=== PATIENT | female | born 1995 | race Caucasian/White ===

== ENCOUNTER → 2018-09-15 | Outpatient (REF) | payer OTHER | LOC: M SFHCLERA 13:53 | PROVIDERS: ATTEND Nurse Practitioner Family | DX: R10.9 Unspecified abdominal pain (principal) ==

== ENCOUNTER → 2020-01-04 | Outpatient (CLI) | payer OTHER ==
--- NOTE | 2020-01-04 10:28 | REPMRS ---
Patient History The patient states she had a clinical breast exam in November 2019. Taking hormonal contraceptives for 4 years. Indicated problem(s): bilateral pain. Pt stated bilateral breast pain for 5 weeks, pain is not constant. Pt stated pain more laterally in both breasts but does tend to have pain in different parts of her breasts at times. Diagnostic Bilateral Mammo: January 04, 2020 - Exam #: [id number] Bilateral CC and MLO view(s) were taken. Technologist: Ana Jamil, RT No prior studies available for comparison. FINDINGS: The breast tissue is almost entirely fat. There is no evidence of dominant mass, architectural distortion, or grouped microcalcification typical of malignancy. 3-D tomosynthesis shows no additional findings. Assessment: BI-RADS/ACR category 1 mammogram. Negative Mammogram. Recommendation Routine screening mammogram of both breasts in 1 year (for women over age 40). This patient's Lifetime Breast Cancer RIsk is estimated at 10.2 %. This mammogram was interpreted with the aid of an FDA-approved computer-aided dectection system. Electronically Signed By: Gerardo Dyson MD 01/04/20 [id number]
== END ==
LOC: M WHC 09:35
PROVIDERS: ATTEND Family Medicine
DX: N64.4 Mastodynia (principal)
CPT/HCPCS: 77066; G0279

== ENCOUNTER 2021-01-25 22:34 | Outpatient (CLI) | payer OTHER ==
[~2021-01-25] VITALS: Ht 149.9 cm; Wt 93.2 kg
--- NOTE | 2021-01-25 23:35 | IPNPDOC ---
Text Note Date of Service The patient was seen on 01/25/21. NOTE S: 25yo Marcel [id number] @27+5 presenting to triage with c/o decreased movement. Denies bleeding, LOF, or cramping. Pt states normal fasting and post prandials with breakfast and lunch, states abnormal levels noted with some dinners. O: VSS RNST, fhr 150s, mod variability, +accel, -decel, no contractions noted TAUS for SIUP in breech presentation with frequent movement visualized, anterior placenta noted. YESI 14.3 A: Suspected condition not found gestational diabetes maternal obesity [id number] P:discharge to home with ptl precautions reviewed movement discussed management of glucose levels and food log to bring to all appointments MILAGROS GONZALEZ CNM January 25, 2021 23:35
== END 2021-01-25 23:40 | disposition home or self-care (01) ==
LOC: M LDO 22:34
PROVIDERS: ATTEND Registered Nurse
DX: O36.8120 Decreased fetal movements, second trimester, not applicable or unspecified (principal); Z3A.27 27 weeks gestation of pregnancy; O32.1XX0 Maternal care for breech presentation, not applicable or unspecified; O99.212 Obesity complicating pregnancy, second trimester; E66.9 Obesity, unspecified; O24.410 Gestational diabetes mellitus in pregnancy, diet controlled
CPT/HCPCS: G0378; G0463

== ENCOUNTER 2021-01-31 20:46 | Outpatient (CLI) | payer OTHER ==
[~2021-01-31] VITALS: Ht 149.9 cm; Wt 92.2 kg
[2021-01-31 21:12] VITALS: BP 117/68
[2021-01-31 21:57] LABS: HEMATOCRIT 30.9 % (36.0-47.0); HEMOGLOBIN 10.6 g/dl (12.0-15.5); MEAN CORPUSCULAR HEMOGLOBIN 29.7 pg (27.0-33.0); MEAN CORPUSCULAR HGB CONC 34.3 g/dl (32.0-36.5); MEAN CORPUSCULAR VOLUME 86.6 fl (80.0-96.0); PLATELET COUNT, AUTOMATED 137 10^3/uL (150-450); RED BLOOD COUNT 3.57 10^6/uL (4.00-5.40); WHITE BLOOD COUNT 10.3 10^3/uL (4.0-10.0)
[2021-01-31] MEDS ORDERED: PRENTAB9 PO (22:08)
--- NOTE | 2021-01-31 23:16 | IPNPDOC ---
Text Note Date of Service The patient was seen on 01/31/21.patient at 28 weeks fall to knees and on right side 6 hours ago arrived in triage. reviewed nst catagory 1 strip moderate varibility no decelerations no contractions , us viable active sourav 8.85cm vertex no abruption noted bk 0.0005 patient rh positive h/h normal precautions given pelvic rest keep appointment at 32 weeks VS,[place], I+O VS, Fishbone, I+O Laboratory Tests 01/31/21 21:46 Vital Signs Date Time Temp Pulse Resp B/P (MAP) Pulse Ox O2 Delivery O2 Flow Rate FiO2 01/31/21 21:12 98.3 81 17 117/68 (84) Ko Wetzel MD January 31, 2021 23:11
== END 2021-01-31 23:05 | disposition home or self-care (01) ==
LOC: M LDO 20:46
PROVIDERS: ATTEND Obstetrics & Gynecology
DX: O9A.213 Injury, poisoning and certain other consequences of external causes complicating pregnancy, third trimester (principal); S80.01XA Contusion of right knee, initial encounter; W01.0XXA Fall on same level from slipping, tripping and stumbling without subsequent striking against object, initial encounter; Y92.9 Unspecified place or not applicable; Z3A.28 28 weeks gestation of pregnancy; Z88.0 Allergy status to penicillin
CPT/HCPCS: 36415; 76815; 85027; 85460; G0378; G0463

== ENCOUNTER → 2021-03-21 | Outpatient (CLI) | payer OTHER ==
[~2021-03-21] MED LIST: PRENTAB9 PO
--- NOTE | 2021-03-21 13:42 | REP ---
INDICATION: ABD CIRCUMFERENCE GREATER THAN 90%TILE, MACROSOMIA. ADDITIONALLY, FOLLOW-UP FOUR-CHAMBER HEART AND UPPER LIP NOT SEEN ON PRIOR OUTSIDE EXAM WHICH IS NOT AVAILABLE FOR COMPARISON. COMPARISON: None. FINDINGS: Multiple ultrasonographic images of the gravid uterus shows a single living intrauterine gestation in the cephalic presentation. Doppler interrogation of the heart shows a heart rate of 140 beats per minute. The subjective amniotic fluid volume is within normal limits. The calculated amniotic fluid index is 18.3 within expected range 7.8 to 24.9. The placenta is anterior and not low lying. Secondary to the low position of the head inaccurate cervical length measurement could not be obtained. Doppler interrogation of the umbilical artery shows an AB ratio of 2.52. This is within the normal range. BPD: 8.6 cm 34 weeks 4 days HC: 31.4 cm 35 weeks 1 day AC: 34.7 cm 38 weeks 4 days FL: 6.7 cm 34 weeks 3 days The estimated weight is 3029 g which is at the 80th percentile for 35 week 4 day gestational age. Optimal visualization of the four-chamber heart was unobtainable. Optimal visualization of upper lip is also unobtainable. The abdominal circumference is greater than 95th percentile for gestational age but evaluation of it was limited secondary to the advanced gestational age and position. IMPRESSION: Limited OB ultrasound as described above showing a single living intrauterine gestation with an estimated gestational age of 35 weeks 4 days via composite criteria and an estimated date of delivery of 04/21/2021 by today's exam. Follow-up is recommended. <Electronically signed by Rayshawn Penn > 03/21/21 [id number]
== END ==
LOC: M RAD 12:42
PROVIDERS: ATTEND Registered Nurse Maternal Newborn
DX: Z34.83 Encounter for supervision of other normal pregnancy, third trimester (principal); Z3A.35 35 weeks gestation of pregnancy

== ENCOUNTER → 2021-04-01 | Outpatient (CLI) | payer OTHER ==
--- NOTE | 2021-04-01 15:49 | REP ---
INDICATION: PREG 35+ F/U FOR SIZE VS DATES COMPARISON: 03/21/2021 TECHNIQUE: Transabdominal obstetrical ultrasound with color Doppler evaluation. FINDINGS: Examination demonstrates a single live intrauterine in cephalic presentation. motion is identified by technologist. Placenta is noted right lateral and grade 1 without evidence for placenta previa or abruption. Amniotic fluid volume is normal. Selected gestational age: 37 weeks 1 day with JOE 04/21/2021. Gestational age by current measurements 37 weeks 4 days with JOE 04/18/2021. FHR equals 135 beats per minute. BPD: 9.0 cm at 36 weeks 3 days HC: 32.3 cm at 36 weeks 4 days AC: 37.1 cm at 41 weeks 0 days (greater than 95th percentile) FL: 7.2 cm at 36 weeks 6 days HL: 6.4 cm at 37 weeks 1 day HC/AC: 0.87 Estimated weight 3667 grams (greater than 97thpercentile). YESI: 10.1 cm (7.5-24.4) Umbilical artery SD ratio: 1.85 (1.59-3.42) IMPRESSION: Single live advanced gestation in cephalic presentation demonstrating greater than expected interval growth and estimated weight. Findings suggesting nuchal cord. <Electronically signed by Deep Knight > 04/01/21 [id number]
== END ==
LOC: M RAD 14:21
PROVIDERS: ATTEND Registered Nurse Maternal Newborn
DX: Z34.93 Encounter for supervision of normal pregnancy, unspecified, third trimester (principal); Z3A.36 36 weeks gestation of pregnancy

== ENCOUNTER 2021-04-14 11:42 | Inpatient (IN) | payer OTHER ==
[~2021-04-14] VITALS: Ht 149.9 cm; Wt 90.9 kg
[2021-04-14] VITALS (21 sets, daily range): BP systolic 101–142; BP diastolic 58–89
[2021-04-14] MEDS ORDERED: LACTATED RINGER'S 1000 ML IV STA (11:52)
[2021-04-14] MEDS ORDERED: FAMOTIDINE INJ 20MG/2ML VIAL (S0028 PER 1) IVP PRN (11:55)
[2021-04-14] MEDS ORDERED: CARBOPROST TROMETHAMINE 250 MCG/ML AMP IM PRN (11:55)
[2021-04-14] MEDS ORDERED: METHYLERGONOVINE MALEATE 0.2 MG/ML VIAL (J2210) IM PRN (11:55)
[2021-04-14] MEDS ORDERED: TRANEXAMIC ACID INJection 1,000 MG in NS 100 ML IV PRN (11:55)
[2021-04-14] MEDS ORDERED: INSULIN REGULAR IN 0.9 % NACL 100 UNIT in IV 1 EA IV SCH ×2 (11:55)
[2021-04-14] MEDS ORDERED: OXYTOCIN DRIP 30 UNITS in IV 1 EA IV PRN (11:55)
[2021-04-14] MEDS ORDERED: ACETAMINOPHEN 500 MG TAB PO PRN (11:55)
[2021-04-14] MEDS ORDERED: NS 1,000 ML IV SCH (11:55)
[2021-04-14] MEDS ORDERED: BUTORPHANOL 2 MG/ML INJ (J0595) IV PRN (11:55)
[2021-04-14] MEDS ORDERED: INSULIN IV RATE CHANGE DOCUMENTATION ML/HR XX SCH (11:55)
[2021-04-14] MEDS ORDERED: PROMETHAZINE INJ 25 MG/ML VIAL (J2550) IV PRN (11:55)
[2021-04-14] MEDS ORDERED: OXYTOCIN DRIP 30 UNITS in IV 1 EA IV SCH (11:55)
[2021-04-14] MEDS ORDERED: miSOPROStol 50MCG 1/2 TABLET PO PRN (12:30)
--- NOTE | 2021-04-14 13:20 | HPEPDOC ---
Obstetrical History & Physical General Date of Admission Apr 14, 2021 at 11:42 History of Present Illness 25 yo at 39w0d with JOE of 21 APR 2021 presents to L&D for IOL for GDM A 1 and LGA with growth on 01 APR 2021 in the >97%tile at 3667 grams and the AC >95%tile. She is feeling well with no concerns at this time. She denies contractions, leaking of fluid, and reports positive movement. Chief Complaint: Induction of labor (for GDM A1 and LGA) Information Provided By: Patient Age: 25 : 3 Term: 1 Pre-term: 0 Abortions: 1 Livin Dating Final EDC: Apr 21, 2021 Final EDC by: 1st trimester (US) EGA at Admission: 39 (+0) Antepartum Course Height (inches): 59 Pre- weight (lbs.): 184 Admission Weight (lbs.): 200 Change in Weight (lbs.): 16 Past Medical History Past Obstetrical History : Past Obstetrical History: Multigravida Gestation: 40 Type of Delivery: Spontaneous Vaginal Del. 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: History of STD (chlamydia) Past Medical History Medical History Obesity, GDM A1, Hx of chlamydia, and migraines Surgical History: Appendectomy Family History Significant Family History: Diverticulitis, Hypertension, Hyperlipidemia, Other (anemia, cirrhosis) Social History Marital Status: Family situation: Spouse/partner home Psychosocial History: No pertinent psych hx * Smoker: non-smoker Alcohol: Denies Drugs: denies Abuse Violence Screening Have you been hit/kicked/slapp: No Have you been sexually assault: No Imunizations Tdap status: declined Influenza Status: declined Allergies Coded Allergies: Penicillins (Verified Allergy, Unknown, 01/31/21) Medications Scheduled No.137/Iron/Folic Acd ( Vitamin Tablet) 1 Each Tablet, 1 TAB PO DAILY Physical Examination Physical Examination GENERAL: Alert and oriented times three. BREAST: . ABDOMEN: Gravid and non-tender to touch. FETUS: Is vertex (VTX) by sterile vaginal examination (SVE), fetus is vertex (VTX) by Saji. HEART RATE: Regular rate and rhythm. LUNGS: Clear to auscultation (CTA). EXTREMITIES: No edema. No clonus. Deep tendon reflexes (DTRs) + 2, no clonus. Laboratory Data [facility] Laboratory Tests 2 04/14/21 11:58: Serology Scanned Report Hepatitis B Testing Pertinent Laboratoy Data Blood Type: A+ RBC Antibody Screen: Negative HIV: Negative Hepatitis B: Negative Rapid Plasma Reagin: Nonreactive Rubella: Immune Varicella: Immune Chlamydia/Gonorrhea: Negative Group B Streptococcus: Negative Cystic Fibrosis: Negative Vaginal Examination Dilation: 3 cm Effacement: 60% Station: -3 Cervical Consistency: Soft Cervical Position: Posterior Presentation: Cephalic presentation Position: Vertex (occiput) Assessment Heart Rate (FHR): 130 Variability: Moderate Accelerations: Present Decelerations: None Tocometer Contractions: Yes Frequency: irregular Multi-drug resistant Organism: No history of MDRO Assessment/Plan Assessment IOL for GDM A1 at 39w0d LGA EFW >97%tile and AC >95%tile Obesity Plan 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 Diet: Clear liquid. Group B Streptococcus (GBS) negative. Labs and intravenous (IV) per unit protocol. Counseled on Pitocin and induction of labor (IOL). Lactated Ringers (LR): Bolus 1000 mL, then at 125 mL/hr. Patient has been thoroughly counseled about the risks of shoulder dystocia, PPH, IOL methods, and risks and indications of section. She states that her and her spouse have thoroughly discussed this risks and she is currently considering a pLTCS vs RACHEL for , as she is unsure if she is wanting a RACHEL due to her increased risks of shoulder dystocia and PPH due to LGA with the AC >95%tile. I offered to repeat growth US since her last growth was 01 APR 2021. She accepted for repeat growth US at this time and will make her decision after the results of her US. Will await results of growth US. Discussed patient status with Dr. Huerta to make aware of current situation. Will update Dr. Huerta once decision has been made by patient and spouse after the results of the US. MANUEL JAIMES CNM Apr 14, 2021 12:42
[2021-04-14] MEDS ORDERED: ACYC1CAP20 PO (13:25)
--- NOTE | 2021-04-14 14:01 | REP ---
INDICATION: Growth US, EFW due to LGA and GDM A1. COMPARISON: 04/01/2021, 03/21/2021 TECHNIQUE: Standard duplex sonographic techniques with color and Doppler imaging of the umbilical arteries FINDINGS: Scanning demonstrates a viable single intrauterine gestation in a cephalic lie. motion is observed and heart rate is recorded at beats per minute. An anterior right lateral, grade 3 placenta is seen without evidence of previa or abruption. Amniotic fluid is subjectively normal. YESI 8.6 with normal range 7.2-22.6. Service is obscured by shadowing from the skull. No extrauterine abnormality is observed. Biometry chart: BPD 8.9 cm; 36 weeks 1 days Head circumference 32.1 cm; 36 weeks 1 days Abdominal circumference 36.1 cm; 40 weeks 0 days Femur length 7.1 cm; 36 weeks 3 days HC/AC ratio normal 0.89 Cephalic index normal 0.79 Estimated weight 3460 grams, 7 pounds 10 ounces, 53rd percentile for 39 weeks 0 days. IMPRESSION: Viable single intrauterine gestation at 37 weeks 1 days by today's composite sonographic criteria. Expected gestational age estimate based on prior sonography is 39 weeks is 0 days. JOE by prior sonography 04/21/2021. Growth curves are flattened and the estimated weight today is nearly 200 g less than on the previous study, there has been no interval growth for the past 13 days. <Electronically signed by Alexandre Padron > 04/14/21 [id number]
[2021-04-14 14:29] LABS: HEMATOCRIT 35.6 % (36.0-47.0); HEMOGLOBIN 11.8 g/dl (12.0-15.5); MEAN CORPUSCULAR HEMOGLOBIN 27.3 pg (27.0-33.0); MEAN CORPUSCULAR HGB CONC 33.1 g/dl (32.0-36.5); MEAN CORPUSCULAR VOLUME 82.2 fl (80.0-96.0); PLATELET COUNT, AUTOMATED 161 10^3/uL (150-450); RED BLOOD COUNT 4.33 10^6/uL (4.00-5.40); WHITE BLOOD COUNT 10.2 10^3/uL (4.0-10.0)
[2021-04-14] MEDS: LR 1,000 ML IV SCH (15:06)
[2021-04-14] MEDS ORDERED: FENTANYL 2MCG/ML ROPIVACAINE 0.2% IN 0.9% NACL 100ML IVBAG As Ordered ONE (19:11)
[2021-04-14] MEDS ORDERED: LACTATED RINGER'S 1000 ML IV PRN (20:15)
[2021-04-14] MEDS ORDERED: diphenhydrAMINE 50MG/ML VIAL (J1200) IV PRN (20:15)
[2021-04-14] MEDS ORDERED: EPIDURAL COMMENT XX SCH (20:15)
[2021-04-14] MEDS ORDERED: NALOXONE INJ 0.4MG/1ML VIAL (J2310 PER 1MG) IV PRN (20:15)
[2021-04-14] MEDS ORDERED: ePHEDrine SULFATE 25 MG/5 ML(5MG/ML) SYRINGE IV PRN (20:15)
[2021-04-14] MEDS ORDERED: ONDANSETRON 4MG/2ML VIAL IV PRN (20:15)
[2021-04-14] MEDS ORDERED: REFRIGERATOR IV KEYS XX PRN (20:15)
[2021-04-14] MEDS ORDERED: EPIDURAL/PCA KEYS XX PRN (20:15)
[2021-04-14] MEDS: FENTANYL/ROPIVACAINE/NACL BAG 100 ML EPIDURAL SCH (20:15)
--- NOTE | 2021-04-14 21:37 | IPNPDOC ---
Obstetrical Progress Note Date of Service Apr 14, 2021 Subjective Patient comfortable with epidural and states she is ready for further management of labor at this time (requesting epidural prior to AROM or pitocin start). RN having difficulty with continuous external monitoring, requesting FSE. Objective Vital Signs Date Time Temp Pulse Resp B/P (MAP) Pulse Ox O2 Delivery O2 Flow Rate FiO2 04/14/21 20:00 98.0 18 04/14/21 19:57 90 142/77 (98) Assessment Heart Rate (FHR): 120 (mod variablility. broken FHT) Tocometer Contractions: Yes (q2-3 min ) Frequency: regular Sterile Vaginal Examination Dilation: 3 cm (AROM, clear fluid. FSE placed ) Effacement (%): 50% Station: -2 Cervical Consistency: Soft Cervical Position: Posterior Assessment and Plan Status: Reassuring Group B Streptococcus: Negative Anticipate: Vaginal Delivery Additional Comments 25yo at 39w0d, now AROM at 2105 and FSE placed due to difficulty tracing fetus. Will start pitocin if needed to maintain contraction frequency every 2-3 min. Pt and in agreement with plan. CARMENCITA TREJO M.D. Apr 14, 2021 21:37
[2021-04-15] VITALS (39 sets, daily range): BP systolic 107–160; BP diastolic 59–93
[2021-04-15] MEDS: FENTANYL/ROPIVACAINE/NACL BAG 100 ML EPIDURAL SCH (06:10)
--- NOTE | 2021-04-15 06:55 | IPNPDOC ---
Obstetrical Progress Note Date of Service Apr 15, 2021 Subjective Patient stating she is feeling more pressure and would like to be checked. Last exam by RN about an hour ago with anterior lip noted, 0 station. She is otherwise comfortable with epidural. Objective Vital Signs Date Time Temp Pulse Resp B/P (MAP) Pulse Ox O2 Delivery O2 Flow Rate FiO2 04/15/21 04:29 76 122/62 (82) 04/15/21 04:14 98.1 16 Assessment Heart Rate (FHR): 140 (mod variability, + accels, early decelerations) Heart Rate Tracing: Category I Tocometer Contractions: Yes Frequency: regular, every 2-2 min. Sterile Vaginal Examination Dilation: 9 cm Effacement (%): 90% Station: 0 Postion/Presentation: Cephalic presentation Assessment and Plan Anticipate: Vaginal Delivery Additional Comments 25yo at 39w0d, s/p AROM at 2105 and FSE placed due to difficulty tracing fetus. Currently on pitocin. SVE with anterior lip, 90% efface, 0 station. Attempted to reduce lip with pushing efforts, unable to reduce. Will continue to labor and anticipate vaginal delivery CARMENCITA TREJO M.D. Apr 15, 2021 06:55
[2021-04-15] MEDS ORDERED: diphenhydrAMINE 50MG/ML VIAL (J1200) IV ONE (08:00)
--- NOTE | 2021-04-15 08:09 | IPNPDOC ---
Obstetrical Progress Note Date of Service Apr 15, 2021 Subjective 25 yo at 39w2d admitted for IOL for GDM A1 reports feeling more pressure with her contractions. She denies denies headache, chest pain, RUQ pain, and and visual changes. She reports that she is tired and has not had any sleep during the night. She has supportive family at the bedside. Objective Vital Signs Date Time Temp Pulse Resp B/P (MAP) Pulse Ox O2 Delivery O2 Flow Rate FiO2 04/15/21 07:49 99.1 04/15/21 07:15 94 160/76 (104) 04/15/21 04:14 16 Cervical exam: Anterior lip/100/+1, anterior lip is not reducible with practice pushing and head does not descend with practice pushing. Assessment Heart Rate (FHR): 125 Variability: Moderate Accelerations: Present Decelerations: Variable Tocometer Contractions: Yes Frequency: regular (every 3-4 minutes) Assessment and Plan Age: 25 : 3 Term: 1 Pre-term: 0 Abortions: 1 Livin Weeks & Days 39w1d Status: Reassuring Group B Streptococcus: Negative Anticipate: Vaginal Delivery Additional Comments Will administer benadryl for sleep Will start pitocin for augmentation Recommended to continue to labor at this time. Dr. June updated on patient status MANUEL JAIMES CNM Apr 15, 2021 08:09
[2021-04-15 09:04] LABS: HEMOGLOBIN 10.9 g/dl (12.0-15.5); MEAN CORPUSCULAR HEMOGLOBIN 26.7 pg (27.0-33.0); MEAN CORPUSCULAR HGB CONC 32.1 g/dl (32.0-36.5); MEAN CORPUSCULAR VOLUME 83.1 fl (80.0-96.0); PLATELET COUNT, AUTOMATED 135 10^3/uL (150-450); RED BLOOD COUNT 4.09 10^6/uL (4.00-5.40); WHITE BLOOD COUNT 16.8 10^3/uL (4.0-10.0)
[2021-04-15 09:52] LABS: BILIRUBIN,TOTAL 0.5 MG/DL (0.2-1.0); CREATININE FOR GFR 1.49 MG/DL (0.55-1.30); GLOMERULAR FILTRATION RATE 44.7 (>60); URIC ACID 5.8 MG/DL (2.6-6.0)
[2021-04-15] MEDS ORDERED: ACETAMINOPHEN TAB 650MG DOSE (2X325MG) PO PRN (10:00)
[2021-04-15] MEDS ORDERED: MEASLES,MUMPS,RUBELLA VACCINE INJ (MMR-II) (90707) SC SCH (10:00)
[2021-04-15] MEDS ORDERED: PROMETHAZINE 25 MG TAB PO PRN (10:00)
[2021-04-15] MEDS ORDERED: IBUPROFEN 800 MG TAB PO PRN (10:00)
[2021-04-15] MEDS ORDERED: IBUPROFEN 600MG TAB PO PRN (10:00)
[2021-04-15] MEDS ORDERED: DIBUCAINE 1% OINTMENT 30GM TOP PRN (10:00)
[2021-04-15] MEDS ORDERED: ACETAMINOPHEN 500 MG TAB PO PRN (10:00)
--- NOTE | 2021-04-15 10:05 | DNPDOC ---
[facility] Delivery Note Delivery Note Date of the procedure: 15 APR 2021 Preoperative diagnosis: 1. 25 y/o at 39w2d 2. Induction of labor for GDM A1 3. GBS negative 4. A positive 5. During her labor, she ruled in for GHTN 6. Obesity 7. AC >90%tile Postoperative diagnosis: 1. 25 y/o G3 now P2012 at 39w2d 2. Induction of labor for GDM A1 3. GBS negative 4. A positive 5. During her labor, she ruled in for GHTN 6. Obesity 7. AC >90%tile Procedure: Delivering Provider: CASIE Valenzuela CNM, ALDA [facility] Special Procedures Technologist Back-up: Dr. Deshawn June Anesthesia: Epidural EBL: 400 ml Specimens: None Findings: Live male weighing 7 lb 12 oz, 3510 grams with Apgars of 9 and 9 at 1 and 5 minutes respectively. Complications: None Details of the procedure: The patient presented for induction of labor for GDM A1. Patient was 3 cm dilated and was then admitted to L&D. Labor progressed with Pitocin and membranes were ruptured artificially for clear fluid.. The patient progressed to fully dilated and entered the second stage of labor, at which point she began to push over an intact perineum. The head was then delivered. The nuchal cord was not noted. The rest of the was delivered. The infant was placed on maternal abdomen and the cord was doubly clamped and cut. Cord blood was not collected and a 3 vessel cord was noted. Manual exploration of the uterus was not performed. Uterine tone was firm. Perineum was inspected and no laceration was found. Cervical exam was normal. Rectal exam was not noted. Sponge, instrument, and needle counts were correct. The patient tolerated the procedure well and is stable in recovery. Note was written and electronically signed by: CASIE Valenzuela CNM, MANUEL WALLACE CNM Apr 15, 2021 09:59
[2021-04-15] MEDS: LR 1,000 ML IV SCH (11:49)
[2021-04-15] MEDS: PRENATAL VITAMINS CHEWABLE TABLET PO SCH (12:25)
[2021-04-15] MEDS: DOCUSATE SODIUM 100MG CAPSULE PO SCH (20:58)
[2021-04-16 06:00] VITALS: BP 139/85
[2021-04-16] MEDS ORDERED: DOK1CAP7 PO (07:05)
[2021-04-16] MEDS ORDERED: IBUP-1022 PO (07:05)
[2021-04-16 07:14] LABS: HEMATOCRIT 27.1 % (36.0-47.0); MEAN CORPUSCULAR HEMOGLOBIN 27.6 pg (27.0-33.0); MEAN CORPUSCULAR HGB CONC 33.2 g/dl (32.0-36.5); MEAN CORPUSCULAR VOLUME 83.1 fl (80.0-96.0); PLATELET COUNT, AUTOMATED 140 10^3/uL (150-450); RED BLOOD COUNT 3.26 10^6/uL (4.00-5.40); WHITE BLOOD COUNT 14.1 10^3/uL (4.0-10.0)
[2021-04-16] MEDS: PRENATAL VITAMINS CHEWABLE TABLET PO SCH (08:11)
[2021-04-16] MEDS: DOCUSATE SODIUM 100MG CAPSULE PO SCH (08:11)
--- NOTE | 2021-04-16 10:04 | DSES ---
DISCHARGE SUMMARY DATE OF ADMISSION: 04/14/2021 DATE OF DISCHARGE: 04/16/2021 BRIEF HISTORY: A 25-year-old 3, now para 2, admitted for induction of labor being a GDM A1, LGA and 39 weeks of gestation. She had an epidural in place, delivered a live male infant, 7 pounds 7 ounces (3510 grams), Apgars 9 and 9 at 1 and 5 minutes respectively. RISK FACTORS: She was a GDM A1, obesity, migraines and was ruled in for gestational hypertension. Her admitting hemoglobin 11.8, hematocrit 36.6 and platelets 161,000. Discharge hemoglobin 10.9, hematocrit 34.0, platelets 135,000. PHYSICAL EXAMINATION: Vital signs on discharge: Blood pressure 139/85, respirations 18, pulse 68, temperature 98.1. We discussed phlebitis, cystitis, mastitis, endometritis, and cellulitis, diet, exercise, pain management, perineal, breast, and wound care. The rest of the examination unremarkable. Normocephalic, atraumatic. Neck full range of motion. Pupils equal and reactive to light. Distal pulses are symmetric. No evidence of DVT, PE or superficial phlebitis. Chest is clear bilaterally to bases. No wheezes or rhonchi. No CVA tenderness. Abdomen is soft, four quadrant bowel sounds are noted. Uterus is two below. Lochia is moderate. Perineum is intact. No rashes, lesions or pruritis. No arthralgia or myalgia. No complaint of joint pain. No complaint of cough, wheeze, shortness of breath or dyspnea on exertion. No urgency or frequency. No nausea, vomiting, diarrhea or constipation. IN SUMMARY: I have a term gestation delivered a live male infant. Plans are to turkey picker her meds at [place]. Six-week checkup at [facility], control will be discussed at that time. All questions were answered, 20-minute discussion. Patient was discharged improved.
== END 2021-04-16 13:40 | disposition home or self-care (01) | DRG 807 ==
LOC: M LDI 11:42 → M OBS 04-15 11:42
PROVIDERS: ADMIT Registered Nurse Maternal Newborn; ATTEND Registered Nurse Maternal Newborn
PROC: 3E033VJ Introduction of Other Hormone into Peripheral Vein, Percutaneous Approach (ICD-10-PCS; 2021-04-14)
PROC: 10E0XZZ Delivery of Products of Conception, External Approach (ICD-10-PCS; principal; 2021-04-15)
PROC: 10907ZC Drainage of Amniotic Fluid, Therapeutic from Products of Conception, Via Natural or Artificial Opening (ICD-10-PCS; 2021-04-15)
DX: O24.425 Gestational diabetes mellitus in childbirth, controlled by oral hypoglycemic drugs (principal); Z37.0 Single live birth; Z3A.39 39 weeks gestation of pregnancy; O36.60X0 Maternal care for excessive fetal growth, unspecified trimester, not applicable or unspecified; E66.9 Obesity, unspecified; O99.214 Obesity complicating childbirth; O13.4 Gestational [pregnancy-induced] hypertension without significant proteinuria, complicating childbirth

== ENCOUNTER → 2021-10-24 | Outpatient (REF) ==
[~2021-10-24] MED LIST changes: +ACYC1CAP20 PO; +DOK1CAP4 PO; +IBUP-1022 PO
== END ==
LOC: M LABSMTC 09:21
PROVIDERS: ATTEND Family Medicine
DX: Z20.822 Contact with and (suspected) exposure to COVID-19 (principal)

== ENCOUNTER → 2022-03-13 | Outpatient (CLI) | payer BC | LOC: M RAD 10:58 | PROVIDERS: ATTEND Nurse Practitioner Family | DX: M79.672 Pain in left foot (principal) ==

== ENCOUNTER → 2022-08-02 | Outpatient (REF) | LOC: M LABSMTC 11:52 | PROVIDERS: ATTEND Family Medicine | DX: Z11.52 Encounter for screening for COVID-19 (principal) ==

== ENCOUNTER → 2022-08-04 | Outpatient (REF) ==
[2022-08-04 14:00] LABS: RSV AMPLIFICATION NEGATIVE (NEGATIVE)
== END ==
LOC: M LABSMTC 10:21
PROVIDERS: ATTEND Family Medicine
DX: Z11.52 Encounter for screening for COVID-19 (principal)

== ENCOUNTER → 2022-08-06 | Outpatient (REF) ==
[2022-08-06 14:44] LABS: RSV AMPLIFICATION NEGATIVE (NEGATIVE)
== END ==
LOC: M LABSMTC 10:38
PROVIDERS: ATTEND Family Medicine
DX: Z20.822 Contact with and (suspected) exposure to COVID-19 (principal)

== ENCOUNTER → 2022-10-11 | Outpatient (REF) | LOC: M LABSMTC 12:11 | PROVIDERS: ATTEND Family Medicine | DX: Z11.52 Encounter for screening for COVID-19 (principal) ==

== ENCOUNTER → 2023-10-04 | Outpatient (REF) ==
[2023-10-04 09:09] LABS: RSV AMPLIFICATION NEGATIVE (NEGATIVE)
== END ==
LOC: M EMP 07:42
PROVIDERS: ATTEND Family Medicine
DX: Z20.828 Contact with and (suspected) exposure to other viral communicable diseases (principal)

== ENCOUNTER → 2023-11-26 | Outpatient (REF) | payer BC ==
[2023-11-26 18:05] LABS: HEMOGLOBIN A1c 4.5 % (4.0-6.0)
[2023-11-26 18:08] LABS: BLOOD UREA NITROGEN 16 MG/DL (9-23); CALCIUM LEVEL 9.3 MG/DL (8.5-10.1); CARBON DIOXIDE LEVEL 28 MMOL/L (20-31); CHLORIDE LEVEL 110 MMOL/L (98-107); CREATININE FOR GFR 0.73 MG/DL (0.55-1.30); GLOMERULAR FILTRATION RATE > 60.0 (>60); GLUCOSE, FASTING 70 MG/DL (60-100); POTASSIUM SERUM 4.6 MMOL/L (3.5-5.1); SODIUM LEVEL 140 MMOL/L (136-145)
[2023-11-26 18:09] LABS: THYROID STIMULATING HORMONE 1.444 uIU/ML (0.55-4.78); TOTAL 25(OH) VITAMIN D 30.7 NG/ML (20.0-100.0)
== END ==
LOC: M LAB REF 16:50
PROVIDERS: ATTEND Nurse Practitioner Family
DX: E66.3 Overweight (principal); Z68.29 Body mass index [BMI] 29.0-29.9, adult; E55.9 Vitamin D deficiency, unspecified

== ENCOUNTER → 2024-10-10 | Outpatient (REF) | LOC: M EMP 13:44 | PROVIDERS: ATTEND Family Medicine | DX: Z01.89 Encounter for other specified special examinations (principal) ==

== ENCOUNTER → 2024-10-13 | Outpatient (REF) | LOC: M EMP 11:32 | PROVIDERS: ATTEND Family Medicine | DX: Z01.89 Encounter for other specified special examinations (principal) ==